=== PATIENT | female | born 1970 | race American Indian/Alaskan Native ===

== ENCOUNTER 2020-08-20 09:10 | Outpatient (CLI) | payer MEDICAID ==
--- NOTE | 2020-08-20 10:43 | Ultrasound Report ---
ULTRASOUND GUIDED BREAST BIOPSY, 08/20/2020 CLINICAL INFORMATION / INDICATION: Outside ultrasound demonstrated an irregular hypoechoic mass in th e left breast for which biopsy was recommended. Patient has abnormal skin thickening and edema involv ing the left nipple as well.. COMPARISON: Previous outside ultrasound 07/06/2020 PROCEDURE: Risks, benefits, and indications to the procedure were discussed with the patient in detail, includin g bleeding, infection, hematoma formation, and inadequate tissue sampling. The patient agreed to proc eed with both verbal and written consent. A timeout procedure was performed with two patient identifi ers. The breast was prepped and draped in the usual sterile fashion. Lidocaine 1% with and without epineph rine were used for local anesthesia. Under direct ultrasound guidance, multiple core samples were obt ained of the irregular solid appearing mass in the retroareolar left breast. A biopsy marker was the n placed. Biopsy device was removed and hemostasis achieved with manual pressure. A sterile dressing was applied to the skin. The patient tolerated the procedure without difficulty. No complications were encountered. Postbiopsy instructions were discussed with the patient and given in writing. Specimens were sent to pathology. IMPRESSION: 1. Technically successful ultrasound guided left breast biopsy. Based on ultrasound appearance, I wojose ld expect diagnosis of either carcinoma or less likely fibroadenoma. Biopsy results are pending and will be reported in an addendum. DIGITAL DIAGNOSTIC MAMMOGRAM WITH CAD , 08/20/2020 CLINICAL INFORMATION / INDICATION: Postprocedure left mammogram for clip placement documentation TECHNIQUE: Digital left mammographic imaging was performed. This examination was interpreted with the benefit of Computer-aided Detection analysis. COMPARISON: Ultrasound-guided biopsy performed today. FINDINGS: Breast Density: The breasts are heterogeneously dense, which may obscure small masses. The clip is in the subareolar left breast, located approximately 4 cm deep to the nipple. There is no obvious mammographic abnormality associated with the clip. There is an incidental coarse calcificati on noted adjacent to the clip which is felt to be of no significance. IMPRESSION: Postprocedure left mammogram shows clip placement in the subareolar left breast, 4 cm tip to the nipple. There is no obvious associated mammographic abnormality. Follow up recommendation: Correlation with pathology report. Post biopsy imaging. A "normal" or negative report should not discourage follow up or biopsy of a clinically significant f inding. A written summary of these findings will be mailed to the patient. The patient will be entered into a mammography reporting system which will generate a reminder letter for the patient's next appointmen t at the appropriate interval. According to the [employer], yearly mammograms are recommended starting at age 40 and continuing as long as a woman is in good health. Breast MRI is recommended for women with an jett roximately 20-25% or greater lifetime risk of breast cancer, including women with a strong family his tory of breast or ovarian cancer and women who have been treated for Hodgkin's disease. Signer Name: Kenia Calle MD Signed: 08/20/2020 10:38 AM Workstation Name: [id number]
== END 2020-08-20 09:11 | disposition home or self-care (01) ==
LOC: SPVWC 09:10
PROVIDERS: ATTEND Surgery
DX: N63.20 Unspecified lump in the left breast, unspecified quadrant (principal); R92.8 Other abnormal and inconclusive findings on diagnostic imaging of breast; Z79.899 Other long term (current) drug therapy
CPT/HCPCS: 88305

== ENCOUNTER 2020-09-23 08:59 | Outpatient (CLI) | payer MEDICAID ==
--- NOTE | 2020-09-23 10:25 | Ultrasound Report ---
ULTRASOUND BREAST LEFT LIMITED, 09/23/2020 CLINICAL INFORMATION / INDICATION: The patient has a history of left breast skin thickening and left breast mass. She has recently undergone percutaneous biopsy with results of fibroadenoma. She reports no symptoms in the left axilla. TECHNIQUE: Targeted ultrasound evaluation was performed of the area of interest. COMPARISON: Bilateral mammogram, 05/29/2020. Ultrasound-guided percutaneous biopsy, 08/20/2020. FINDINGS: Sonographic evaluation of the left axilla demonstrates that the left axillary lymph nodes are normal in size with a normal morphology. No suspicious mass or shadowing is visualized. IMPRESSION: Normal sonographic appearance of left axillary lymph nodes. Please correlate with patient 's clinical circumstances given the fact that she has skin thickening on her recent mammogram. Follow up recommendation: Clinical exam BI-RADS Category 1: Negative. A normal or "negative" report should not preclude biopsy or follow-up of a clinically suspicious find ing. Signer Name: Katina Baum MD Signed: 09/23/2020 10:21 AM Workstation Name: [email or web address]
== END 2020-09-23 09:00 | disposition home or self-care (01) ==
LOC: SPVWC 08:59
PROVIDERS: ATTEND Surgery
DX: R92.8 Other abnormal and inconclusive findings on diagnostic imaging of breast (principal); R59.1 Generalized enlarged lymph nodes

== ENCOUNTER 2020-12-24 09:39 | Outpatient (CLI) | payer MEDICAID ==
--- NOTE | 2020-12-24 11:11 | Ultrasound Report ---
EXAMINATION: Left Limited Breast Ultrasound, 12/24/2020 INDICATION: The patient has a history of left breast biopsy with benign results (fibroadenoma). This is a short-t erm follow-up of previously seen possibly enlarged left axillary lymph nodes. The patient reports no new breast symptoms on today's study. COMPARISON: Screening mammogram, 05/29/2020. Left breast ultrasound, 07/10/2020. Ultrasound-guided biopsy, 020. Left breast ultrasound, 09/23/2020 FINDINGS: Targeted ultrasound evaluation was performed of the area of interest. Sonographic evaluati on of the left axilla again demonstrates normal-appearing left axillary lymph nodes. These are normal in morphology with a thin cortex and preserved fatty hilum. No suspicious left axillary lymph node i s visualized. IMPRESSION: Follow up recommendation: Routine yearly BI-RADS Category 1: Negative. Normal appearance of left axillary lymph nodes. A normal or "negative" report should not preclude biopsy or follow-up of a clinically suspicious find ing. Signer Name: Katina Baum MD Signed: 12/24/2020 11:06 AM Workstation Name: [id number]
== END 2020-12-24 09:40 | disposition home or self-care (01) ==
LOC: SPVWC 09:39
PROVIDERS: ATTEND Surgery
DX: R92.8 Other abnormal and inconclusive findings on diagnostic imaging of breast (principal)

== ENCOUNTER 2021-01-16 07:21 | Day surgery (SDC) | payer MEDICAID ==
[2021-01-14 11:42] LABS: Hematocrit 33.5 % (30.3-42.9); Hemoglobin 10.8 gm/dl (10.1-14.3); Mean Corpuscular HGB Conc 32 % (30-34); Mean Corpuscular Volume 78 fl (79-97); Platelet Count 272 K/mm3 (140-440); Red Blood Count 4.29 M/mm3 (3.65-5.03); Red Cell Distribution Width 16.9 % (13.2-15.2)
[2021-01-14 11:55] LABS: Blood Urea Nitrogen 11 mg/dL (7-17); Calcium 8.7 mg/dL (8.4-10.2); Hemolysis Index 1
--- NOTE | 2021-01-14 12:01 | Anesthesia Consultation ---
Anesthesia Consult and Med Hx Date of service: 01/16/21 - Airway Anesthetic Teeth Evaluation: Poor (denies loose teeth) ROM Head & Neck: Adequate Mental/Hyoid Distance: Adequate Mallampati Class: Class III Intubation Access Assessment: Possibly Difficult - Pre-Operative Health Status ASA Pre-Surgery Classification: ASA3 Proposed Anesthetic Plan: General - Pre-Anesthesia Comment Pre-Anesthesia Comments: Difficult intubation note written by anesthesiologist after surgery in 2013 reviewed. Successful intubation achieved with direct laryngoscopy w/ Mil 2, oETT size not mentioned. Will plan for glidescope w/ additional difficult intubation equipment available. - Pulmonary Hx Smoking: No Hx Respiratory Symptoms: No - Cardiovascular System Hx Hypertension: Yes Hx Heart Attack/AMI: No Hx Cardia Arrhythmia: No Hx Valvular Heart Disease: No - Central Nervous System CVA: No Hx Psychiatric Problems: Yes (cognitive delay) - Endocrine Hx Renal Disease: No Hx Liver Disease: No Hx Non-Insulin Dependent Diabetes: Yes ("pre-DM") Hx Thyroid Disease: No - Other Systems Hx Obesity: Yes (BMI 33)
[2021-01-14 12:09] LABS: BUN/Creatinine Ratio 16
[~2021-01-16 07:21] MED LIST: ACETAMINOPHEN 500 MG TAB PO SCH; BUPIVACAINE/PF (0.5%) 5 MG/1 ML 30 ML VIAL INFILTRATI ONE; GABAPENTIN 300 MG CAP PO NR; LACTATED RINGERS 1,000 ML IV SCH; LIDOCAINE (1%) 10 MG/1 ML VIAL 20 ML MDV INFILTRATI ONE; MIDAZOLAM 2 MG/2 ML INJ IV NR; SCOPOLAMINE TRANSDERMAL PATCH 72 HR TD NR; SODIUM CHLORIDE 0.9% IRR 1,500 ML BOTTLE IR ONE
--- NOTE | 2021-01-16 08:19 | Anesthesia Day of Surgery ---
Anesthesia Day of Surgery - Day of Surgery Patient Examined: Yes Patient H&P Reviewed: Yes Patient is NPO: Yes
[2021-01-16] MEDS ORDERED: ONDANSETRON 4 MG/2 ML INJ IV PRN (08:30)
[2021-01-16] MEDS ORDERED: LIDOCAINE (1%) 10 MG/1 ML VIAL 20 ML MDV ONE (08:48)
[2021-01-16] MEDS ORDERED: BUPIVACAINE/PF (0.5%) 5 MG/1 ML 30 ML VIAL INFILTRATI ONE ×3 (08:48→11:21)
[2021-01-16] MEDS ORDERED: HYDROmorphone 1 MG/1 ML INJ IV PRN (09:00)
[2021-01-16] MEDS ORDERED: oxyCODONE /ACETAMINOPHEN 5-325MG TAB PO PRN (09:00)
[2021-01-16] MEDS ORDERED: ceFAZolin/Water 2 GM/20 ML 2 GM/20 ML SYRINGE IV ONE (09:27)
[2021-01-16] MEDS ORDERED: ceFAZolin/STERILE WATER 2 GM/20 ML SYRINGE IV NR (10:00)
[2021-01-16] MEDS ORDERED: ONDANSETRON 4 MG/2 ML INJ ONE ×2 (10:29→11:03)
[2021-01-16] MEDS ORDERED: ROCURONIUM 50 MG/5 ML INJ IV ONE (10:29)
[2021-01-16] MEDS ORDERED: LIDOCAINE MPF (2%) 20 MG/1 ML VIAL 5 ML ONE (10:29)
[2021-01-16] MEDS ORDERED: HYDROmorphone 1 MG/1 ML INJ ONE (10:30)
[2021-01-16] MEDS ORDERED: propofoL 200 MG/20 ML VIAL IV ONE (10:30)
[2021-01-16] MEDS ORDERED: dexAMETHasone 20 MG/5 ML VIAL ONE (11:03)
[2021-01-16] MEDS ORDERED: LIDOCAINE (1%) 10 MG/1 ML VIAL 20 ML MDV INFILTRATI ONE ×2 (11:21)
[2021-01-16] MEDS ORDERED: SODIUM CHLORIDE 0.9% IRR 1,500 ML BOTTLE IR ONE (11:21)
[2021-01-16] MEDS ORDERED: LACTATED RINGERS 1,000 ML ONE (11:34)
[2021-01-16] MEDS ORDERED: KETOROLAC 30 MG/1 ML INJ ONE (11:34)
[2021-01-16] MEDS ORDERED: GLYCOPYRROLATE 0.4 MG/2 ML INJ ONE (11:34)
[2021-01-16] MEDS ORDERED: NEOSTIGMINE 10MG/10 ML INJ MDV ONE (11:34)
--- NOTE | 2021-01-16 12:09 | Short Stay Summary ---
Short Stay Documentation Date of service: 01/16/21 - History Principal diagnosis: umbilical hernia H&P: obtained from office - Allergies and Medications Current Medications: Allergies No Known Allergies Allergy (Unverified 01/09/21 14:43) Home Medications Medication Instructions Recorded Confirmed Last Taken Type Ferrous Sulfate [Iron 325 MG] 325 mg PO DAILY 01/09/21 01/09/21 01/15/21 History Furosemide [Lasix] 20 mg PO QDAY 01/09/21 01/09/21 01/15/21 History Lurasidone HCl [Latuda] 80 mg PO DAILY 01/09/21 01/09/21 01/15/21 History labetaloL [Labetalol 100mg TAB] 100 mg PO TID 01/09/21 01/16/21 01/16/21 06:00 History metFORMIN [Glucophage] 500 mg PO BID 01/09/21 01/09/21 01/15/21 History Active Medications Acetaminophen (Acetaminophen 500 Mg Tab) 1,000 mg PO PREOP LY Stop: 01/16/21 20:00 Last Admin: 01/16/21 08:57 Dose: 1,000 mg Documented by: Cefazolin Sodium (Cefazolin/Sterile Water 2 Gm/20 Ml Syringe) 2 gm IV PREOP NR Stop: 01/16/21 23:59 Gabapentin (Gabapentin 300 Mg Cap) 300 mg PO PREOP NR Stop: 01/16/21 20:00 Last Admin: 01/16/21 08:57 Dose: 300 mg Documented by: Hydromorphone HCl (Hydromorphone 1 Mg/1 Ml Inj) 0.5 mg IV Q10MIN PRN PRN Reason: Pain , Severe (7-10) Stop: 01/16/21 18:00 Lactated Ringer's (Lactated Ringers) 1,000 mls @ 100 mls/hr IV DIRECT LY Stop: 01/16/21 23:59 Last Admin: 01/16/21 08:57 Dose: 100 mls/hr Documented by: Midazolam HCl (Midazolam 2 Mg/2 Ml Inj) 2 mg IV PREOP NR Stop: 01/16/21 20:00 Last Admin: 01/16/21 09:03 Dose: 2 mg Documented by: Ondansetron HCl (Ondansetron 4 Mg/2 Ml Inj) 4 mg IV ONCE PRN PRN Reason: Nausea And Vomiting Stop: 01/16/21 18:00 Oxycodone/Acetaminophen (Oxycodone /Acetaminophen 5-325mg Tab) 1 tab PO ONCE PRN PRN Reason: Pain, Moderate (4-6) Stop: 01/16/21 18:00 Scopolamine (Scopolamine Transdermal Patch 72 Hr) 1 each TD PREOP NR Stop: 01/16/21 20:00 Last Admin: 01/16/21 08:34 Dose: 1 each Documented by: - Brief post op/procedure progress note Date of procedure: 01/16/21 Pre-op diagnosis: umbilical hernia Post-op diagnosis: same Procedure: open umbilical hernia repair with mesh Anesthesia: GETA, local Findings: 1.5 cm umbilical hernia with incarcerated omentum Surgeon: MARNI CLEMONS Shell Mold Bonder: DINH TRIPLETT Estimated blood loss: minimal Pathology: list (hernia sac) Specimen disposition: to lab Condition: stable - Hospital course Hospital course: Pt observed in PACU and discharged to home in stable condition when criteria met - Disposition Condition at discharge: Good Disposition: DC-01 TO HOME OR SELFCARE Short Stay Discharge Plan Activity: other (no heavy lifting) Diet: regular Wound: open to air, per your surgeon's advice Additional Instructions: SEE PRINTED DISCHARGE INSTRUCTIONS Follow up with: VANDANA IRELAND MD [Primary Care Provider] - 7 Days MARNI CLEMONS DO [Staff Physician] - 14 Days Prescriptions: Ibuprofen [Motrin] 800 mg PO Q8HR PRN #30 tablet PRN Reason: Pain, Moderate (4-6) HYDROcodone/APAP 5-325 [[place] 5/325] 1 each PO Q6HR PRN #20 tablet PRN Reason: Pain , Severe (7-10)
[2021-01-16 16:09] VITALS: BP 145/83
--- NOTE | 2021-01-16 16:52 | Post Anesthesia Evaluation ---
- Post Anesthesia Evaluation Patient Participated: Yes Airway Patent: Yes Stable Respiratory Function: Yes Nausea/Vomiting: No Temp > 96.8F: Yes Pain Manageable: Yes Adequeate Hydration: Yes Anesthesia Complications: No
--- NOTE | 2021-01-16 17:22 | Operative Report ---
Operative Report Operative Report: Date of procedure: 01/16/21 Pre-op diagnosis: umbilical hernia Post-op diagnosis: same Procedure: open umbilical hernia repair with mesh Anesthesia: BARBARA local Findings: 1.5 cm umbilical hernia with incarcerated omentum Surgeon: MARNI CLEMONS Lap Hand Tool: DINH TRIPLETT Estimated blood loss: minimal Pathology: list (hernia sac) Specimen disposition: to lab Condition: stable Hospital course: Pt observed in PACU and discharged to home in stable condition when criteria met HPI indication: Patient is a 50-year-old female who presented to the surgery clinic with an umbilical hernia. The patient was having discomfort in the area and elected to have this fixed. All risk, benefits, alternatives to surgery were discussed with patient and her mother who is her primary caregiver and questions answered. It was recommended that the hernia be repaired open as the defect was small. Consent was obtained for open umbilical hernia repair with possible mesh. Procedure in detail: Patient was identified in the preoperative area, taken back to the operating room and placed on the operating room table in supine position. After anesthesia was induced the abdomen was prepped and draped in usual sterile fashion timeout performed. Local anesthetic was infiltrated into the skin at the intended incision site. A semilunar incision was made at the inferior aspect of the umbilicus using a 15 blade. Dissection was carried down through skin and subcutaneous tissue using Bovie electrocautery until the fascia was encountered. The hernia sac and its contents were circumferentially dissected free from the umbilicus. There was a small amount of incarcerated omentum contained within the hernia sac which was easily reduced. The fascia was identified and freed of overlying tissue circumferentially. The fascial defect was approximately 1.5 cm. It was decided to repair the hernia with an [address] composite mesh. The mesh was inserted into the abdomen and was ensured to be expanded completely and laying flat. This was sutured in place using 2-0 Prolene suture circumferentially in the usual fashion. The tabs were cut flush with the fascia. The subcutaneous tissue was irrigated and hemostasis was carefully ensured. The umbilicus was tacked down to the fascia using a 3-0 Vicryl interrupted stitch. The deep dermal layer was closed using 3-0 Vicryl interrupted sutures. Local anesthetic was once again infiltrated into the skin. The skin was approximated using 4-0 Monocryl subcuticular running stitch and skin glue. After the glue was dry a 4 x 4 fluff gauze was placed in the umbilicus and secured with a Tegaderm. At the end of the case, all sponge, instrument, sharp counts were correct x2. The patient was awoken from anesthesia extubated and taken to PACU in stable condition.
== END 2021-01-16 13:50 | disposition home or self-care (01) ==
LOC: OR 07:21
PROVIDERS: ATTEND Surgery
DX: K42.0 Umbilical hernia with obstruction, without gangrene (principal); Z20.822 Contact with and (suspected) exposure to COVID-19; G43.909 Migraine, unspecified, not intractable, without status migrainosus; E78.00 Pure hypercholesterolemia, unspecified; I10 Essential (primary) hypertension; E66.9 Obesity, unspecified; E11.9 Type 2 diabetes mellitus without complications; D64.9 Anemia, unspecified; Z79.899 Other long term (current) drug therapy; Z79.84 Long term (current) use of oral hypoglycemic drugs; Z87.440 Personal history of urinary (tract) infections; Z98.890 Other specified postprocedural states
CPT/HCPCS: 36415; 49587; 80048; 82962; 84703; 85027; 88302; C1781; J0690; J1100; J1170; J1885; J2250; J2405; J2704; J2710; J7120; U0003

== ENCOUNTER 2021-03-11 10:07 | Outpatient (CLI) | payer MEDICAID ==
--- NOTE | 2021-03-16 09:18 | Ultrasound Report ---
ULTRASOUND BREAST LEFT COMPLETE, 03/13/2021 CLINICAL INFORMATION / INDICATION: FIBROADENOSIS OF BREAST N60.22. TECHNIQUE: Complete sonographic evaluation of all 4 quadrants and retroareolar region was performed. COMPARISON: Prior outside left breast ultrasound 07/10/2020 and left breast percutaneous biopsy 08/20 FINDINGS: Sonographic evaluation of the left breast demonstrates a oval hypoechoic solid mass measuring 1.7 x 0 .9 cm in the 12:00 position 2 cm from nipple. This is grossly unchanged from prior ultrasound of 07/24. This mass was biopsied on 08/20/2020 with result of fibroadenoma. Additionally, there is oval hypoechoic possibly solid mass in the 4:00 position, 6 cm from nipple measuring 1.5 x 1.4 x 0.5 cm. Overall this has benign features. Fibrocystic tissue is noted in the 11:00 position of no significanc e. Sonographic evaluation of the left axilla is unremarkable. Normal-appearing lymph nodes with no focal cortical thickening are noted. IMPRESSION: Stable appearance of previously biopsied solid mass in the 12:00/retroareolar left breast . This was found to be fibroadenoma on prior biopsy. There is a benign-appearing hypoechoic solid-appearing mass in the 4:00 position likely also fibroade noma. As this has not been imaged on prior imaging exams, recommend 6 month follow-up left breast ult rasound for the 4:00 abnormality. Follow up recommendation: Short term follow up in 6 months. BI-RADS Category 3: Probably Benign. Followup in 6 months. A normal or "negative" report should not preclude biopsy or follow-up of a clinically suspicious find ing. Signer Name: Kenia Calle MD Signed: 03/16/2021 9:14 AM Workstation Name: [id number]
== END 2021-03-11 10:08 | disposition home or self-care (01) ==
LOC: SPVWC 10:07
PROVIDERS: ATTEND Surgery
DX: N60.22 Fibroadenosis of left breast (principal)